=== PATIENT | male | born 1995 | race Caucasian/White ===

== ENCOUNTER 2018-09-17 07:44 | Emergency (ER) | payer SELFPAY ==
--- NOTE | 2018-09-17 07:48 | Emergency Department Record ---
History of Present Illness - General Chief complaint: Extremity Problem Stated complaint: RIGHT HAND INJURY Time Seen by Provider: 09/17/18 07:47 Source: Patient Mode of Arrival: Ambulatory Limitations: No limitations - History of Present Illness Initial comments: The patient is here due to R hand pain. He injured it punching a bag last night. Complaint: Extremity pain Onset/Timin -: Days(s) - Related Data Home Medications Medication Instructions Recorded Confirmed Last Taken No Home Med [NO HOME MEDS] 09/17/18 09/17/18 Unknown Allergies Allergy/AdvReac Type Severity Reaction Status Date / Time Penicillins Allergy PT UNSURE Verified 09/17/18 07:50 OF REACTION Physical Exam - General General Appearance: Alert, Oriented x3, Cooperative, No acute distress - Head Head exam: Atraumatic, Normocephalic - Eye Eye exam: Normal appearance - Extremities Extremities exam: Normal inspection, Full ROM, Tenderness (There is mild tenderness over the distal 3rd-5th MCP joints. There is normal ROM with no difficulty.). negative: Joint swelling Image of Hand: 1 - Area of pain and tenderness. - Neurological Neurological exam: Alert. negative: Motor sensory deficit Course - Reevaluation(s) Reevaluation #1: I did discuss the neg xrays with the patient and the need for Tylenol or Motrin for pain. He is to see his PCP if not better next week. 09/17/18 08:09 Disposition Disposition: Discharge Clinical Impression: Contusion, hand Qualifiers: Encounter type: initial encounter Laterality: right Qualified Code(s): S60.221A - Contusion of right hand, initial encounter Disposition: Home, Self-Care Condition: (2) Stable Instructions: Hand Sprain (ED) Additional Instructions: Please ice the hand when possible and use Tylenol or Motrin for pain. Please see your family doctor if not better next week. Return to the ER for any worsening problems. Forms: Patient Portal Access Time of Disposition: 08:10 Quality - Quality Measures Quality Measures: N/A - Blood Pressure Screening View Details: Yes Does Patient Have Any of the Following: No Blood Pressure Classification: Pre-Hypertensive BP Reading Systolic Measurement: 138 Diastolic Measurement: 84 Screening for High Blood Pressure: < Pre-Hypertensive BP, F/U Documented > [ [id number]] Pre-Hypertensive Follow-up Interventions: Referral to alternative/primary care provider.
--- NOTE | 2018-09-18 13:18 | RADIOLOGY REPORT ---
DATE: 09/17/2018. EXAM: RIGHT HAND. HISTORY: INJURY. TECHNIQUE: Three views of the right hand were performed. FINDINGS: No evidence of fracture or dislocation. No lytic or blastic lesion. IMPRESSION: NEGATIVE RIGHT HAND EXAMINATION. JOB NUMBER: [id number] MTDD
== END 2018-09-17 08:40 | disposition home or self-care (01) ==
LOC: ER 07:44
DX: S60.221A Contusion of right hand, initial encounter (principal); W22.8XXA Striking against or struck by other objects, initial encounter
CPT/HCPCS: 99283